=== PATIENT | female | born 1980 | race Caucasian/White ===

== ENCOUNTER 2017-07-31 10:55 | Inpatient (IN) | payer OTHER ==
[~2017-07-31] VITALS: Ht 165.1 cm; Wt 137.1 kg
[2017-07-31 12:08] LABS: BASOPHIL % 0.3 % (0-2)
[2017-07-31 12:09] LABS: PLATELET COUNT 406 x10^3mcL (130-400); RED CELL DISTRIBUTION WIDTH 16.5 % (11.5-14.5)
[2017-07-31 12:10] LABS: UA SPECIFIC GRAVITY 1.025 (1.005-1.035); microscopic required? YES; urine erythrocyte 3+ (NEGATIVE)
[2017-07-31 12:17] LABS: CALCIUM 8.7 mg/dL (8.5-10.1); CARBON DIOXIDE 29.9 mmol/L (21-32); CHLORIDE SERUM 102 mmol/L (98-107); CREATININE SERUM 0.7 mg/dL (0.6-1.0); GFR1 > 60 mL/min; GLUCOSE SERUM 113 mg/dL (74-106); POTASSIUM SERUM 3.5 mmol/L (3.5-5.1); SODIUM SERUM 138 mmol/L (136-145)
[2017-07-31 12:21] LABS: ALKALINE PHOSPHATASE 108 U/L (46-116); ALT/SGPT 113 U/L (14-59); AMYLASE 35 U/L (25-115); AST/SGOT 94 U/L (15-37); BILIRUBIN TOTAL 0.33 mg/dL (0.20-1.00); CHOLESTEROL 180 mg/dL (<200); LIPASE 90 IU/L (73-393)
[2017-07-31 12:23] LABS: ALBUMIN 3.2 g/dL (3.4-5.0); TOTAL PROTEIN, SERUM 8.4 g/dL (6.4-8.2)
[2017-07-31] MEDS ORDERED: [UNRECOGNIZED DRUG - OTHER] PO (13:04)
[2017-07-31] MEDS ORDERED: LOSARTAN POTASS25 M1 PO (13:11)
[2017-07-31] MEDS ORDERED: HYD50T PO (13:12)
[2017-07-31 14:43] LABS: AMPHETAMINE QUAL UR NONE DETECTED (NEG <=1000)
[2017-07-31 14:46] LABS: T3 TOTAL 1.31 ng/mL
[2017-07-31 14:53] VITALS: BP 155/70
[2017-07-31 14:53] LABS: FREE T4 1.11 ng/dL (0.76-1.46); FREE THYROXINE INDEX 3.3 ug/dL (1.4-4.5); T4(THYROXINE) 10.7 ug/dL (4.7-13.3)
[2017-07-31 14:57] LABS: MAGNESIUM 1.9 mg/dL (1.8-2.4); PHOSPHOROUS 3.4 mg/dL (2.5-4.9)
[2017-07-31 20:00] VITALS: BP 184/89
[2017-07-31 22:36] VITALS: BP 156/74
[2017-08-01 05:52] VITALS: BP 157/73
[2017-08-01 05:55] LABS: BASOPHIL % 0.5 % (0-2); PLATELET COUNT 363 x10^3mcL (130-400)
[2017-08-01 06:12] LABS: CALCIUM 8.4 mg/dL (8.5-10.1); CHLORIDE SERUM 105 mmol/L (98-107); CREATININE SERUM 0.8 mg/dL (0.6-1.0); GFR1 > 60 mL/min; GLUCOSE SERUM 114 mg/dL (74-106); POTASSIUM SERUM 3.7 mmol/L (3.5-5.1); SODIUM SERUM 140 mmol/L (136-145)
[2017-08-01 06:18] LABS: RED CELL DISTRIBUTION WIDTH 16.6 % (11.5-14.5)
[2017-08-01 09:01] VITALS: BP 146/80
[2017-08-01 13:58] VITALS: BP 118/59
[2017-08-01 18:35] VITALS: BP 131/68; BP 139/89
[2017-08-01 21:40] VITALS: BP 120/60
[2017-08-02 06:06] LABS: BASOPHIL % 0.2 % (0-2); PLATELET COUNT 388 x10^3mcL (130-400)
[2017-08-02 06:18] LABS: CALCIUM 8.3 mg/dL (8.5-10.1); CARBON DIOXIDE 29.6 mmol/L (21-32); CHLORIDE SERUM 104 mmol/L (98-107); CREATININE SERUM 0.8 mg/dL (0.6-1.0); GFR1 > 60 mL/min; GLUCOSE SERUM 112 mg/dL (74-106); PHOSPHOROUS 3.3 mg/dL (2.5-4.9); POTASSIUM SERUM 3.5 mmol/L (3.5-5.1); SODIUM SERUM 140 mmol/L (136-145)
[2017-08-02 06:21] LABS: RED CELL DISTRIBUTION WIDTH 16.6 % (11.5-14.5)
[2017-08-02 06:39] VITALS: BP 169/51
[2017-08-02 09:41] VITALS: BP 142/58
[2017-08-02 17:19] VITALS: BP 108/58
[2017-08-02 21:28] VITALS: BP 143/73
[2017-08-03 05:38] VITALS: BP 151/81
[2017-08-03 07:02] LABS: BASOPHIL % 0.3 % (0-2); PLATELET COUNT 357 x10^3mcL (130-400)
[2017-08-03 07:06] LABS: RED CELL DISTRIBUTION WIDTH 16.7 % (11.5-14.5)
[2017-08-03 07:17] LABS: CALCIUM 8.4 mg/dL (8.5-10.1); CARBON DIOXIDE 28.3 mmol/L (21-32); CHLORIDE SERUM 104 mmol/L (98-107); CREATININE SERUM 0.9 mg/dL (0.6-1.0); GFR1 > 60 mL/min; GLUCOSE SERUM 92 mg/dL (74-106); MAGNESIUM 1.8 mg/dL (1.8-2.4); PHOSPHOROUS 2.2 mg/dL (2.5-4.9); POTASSIUM SERUM 3.2 mmol/L (3.5-5.1); SODIUM SERUM 139 mmol/L (136-145)
[2017-08-03 07:30] LABS: rbc morphology (normal/abnorm) ABNORMAL (NORMAL)
[2017-08-03] MEDS ORDERED: ZOF4 PO (08:47)
[2017-08-03] MEDS ORDERED: NORCO1 TA2 PO (08:47)
[2017-08-03 10:33] VITALS: BP 165/94
[2017-08-03 13:00] VITALS: BP 165/94
== END 2017-08-03 14:49 | disposition home or self-care (01) | DRG 263 ==
LOC: ED 10:55 → DU 13:45 → MU 08-02 06:14
PROVIDERS: Emergency Medicine; Surgery; ADMIT Family Medicine
PROC: 0FT44ZZ Resection of Gallbladder, Percutaneous Endoscopic Approach (ICD-10-PCS; principal; 2017-08-01 09:45)
DX: K80.00 Calculus of gallbladder with acute cholecystitis without obstruction (principal); E43 Unspecified severe protein-calorie malnutrition; K82.1 Hydrops of gallbladder; I10 Essential (primary) hypertension; E11.65 Type 2 diabetes mellitus with hyperglycemia; Z68.43 Body mass index [BMI] 50.0-59.9, adult; E66.01 Morbid (severe) obesity due to excess calories; D50.0 Iron deficiency anemia secondary to blood loss (chronic); N92.0 Excessive and frequent menstruation with regular cycle; R74.0 Nonspecific elevation of levels of transaminase and lactic acid dehydrogenase [LDH]; I16.0 Hypertensive urgency
CPT/HCPCS: 82962; 83880; 84439; 90658; 94150; 97110-GP; 97116-GP; 97530-GP; J1644; J1815; J1885; J2175; J2250; J2543; J3010; J3490; J7030; Q0092

== ENCOUNTER 2017-09-13 15:27 | Emergency (ER) | payer OTHER ==
[~2017-09-13] VITALS: Ht 165.1 cm; Wt 127.5 kg
[~2017-09-13 15:27] MED LIST: HYD50T PO; LOSARTAN POTASS25 M1 PO; NORCO1 TA2 PO; ZOF4 PO; [UNRECOGNIZED DRUG - OTHER] PO
[2017-09-13 16:52] LABS: BASOPHIL % 0.1 % (0-2); PLATELET COUNT 374 x10^3mcL (130-400)
[2017-09-13 16:54] LABS: RED CELL DISTRIBUTION WIDTH 17.5 % (11.5-14.5)
[2017-09-13 17:06] LABS: ALKALINE PHOSPHATASE 97 U/L (46-116); ALT/SGPT 52 U/L (14-59); AST/SGOT 34 U/L (15-37); BILIRUBIN TOTAL 0.53 mg/dL (0.20-1.00); CALCIUM 8.8 mg/dL (8.5-10.1); CARBON DIOXIDE 27.8 mmol/L (21-32); CHLORIDE SERUM 101 mmol/L (98-107); CREATININE SERUM 0.8 mg/dL (0.6-1.0); GFR1 > 60 mL/min; GLUCOSE SERUM 104 mg/dL (74-106); SODIUM SERUM 137 mmol/L (136-145); TOTAL PROTEIN, SERUM 8.2 g/dL (6.4-8.2)
[2017-09-13 17:07] LABS: ALBUMIN 3.2 g/dL (3.4-5.0)
[2017-09-13 18:25] VITALS: BP 129/57
== END 2017-09-13 18:25 | disposition home or self-care (01) ==
LOC: ED 15:27
PROVIDERS: Emergency Medicine
DX: J06.9 Acute upper respiratory infection, unspecified (principal); I10 Essential (primary) hypertension
CPT/HCPCS: J0696; J7030

== ENCOUNTER 2019-11-13 01:50 | Inpatient (IN) | payer OTHER ==
[~2019-11-13] VITALS: Ht 165.1 cm; Wt 132.0 kg
[2019-11-13 01:55] VITALS: Ht 165.1 cm; Wt 132.0 kg
[2019-11-13 03:22] LABS: CALCIUM 9.1 mg/dL (8.5-10.1); CARBON DIOXIDE 26.3 mmol/L (21-32); CHLORIDE SERUM 103 mmol/L (98-107); CREATININE SERUM 0.8 mg/dL (0.6-1.0); GFR1 > 60 mL/min; GLUCOSE SERUM 127 mg/dL (74-106); POTASSIUM SERUM 3.7 mmol/L (3.5-5.1); SODIUM SERUM 138 mmol/L (136-145)
[2019-11-13 03:23] LABS: CK-MB 1.2 ng/mL (0-3.6)
[2019-11-13 03:28] LABS: ALBUMIN 3.5 g/dL (3.4-5.0); ALKALINE PHOSPHATASE 106 U/L (46-116); ALT/SGPT 37 U/L (14-59); AST/SGOT 20 U/L (15-37); BILIRUBIN TOTAL 0.3 mg/dL (0.20-1.00)
[2019-11-13 03:56] LABS: TOTAL PROTEIN, SERUM 8.4 g/dL (6.4-8.2)
[2019-11-13 04:08] LABS: BASOPHIL % 0.3 % (0-2); PLATELET COUNT 381 x10^3mcL (130-400)
[2019-11-13 04:35] LABS: UA SPECIFIC GRAVITY 1.015 (1.005-1.035); microscopic required? YES; urine erythrocyte 1+ (NEGATIVE)
[2019-11-13] MEDS ORDERED: COZAAR25 M1 PO (04:45)
[2019-11-13] MEDS ORDERED: HYDROCHLOROTH12.5 M3 PO (04:46)
[2019-11-13 05:16] VITALS: BP 214/117
[2019-11-13 05:32] LABS: CHOLESTEROL/HDL RATIO 3.8; MAGNESIUM 2.1 mg/dL (1.8-2.4); PHOSPHOROUS 2.9 mg/dL (2.5-4.9)
[2019-11-13 05:44] LABS: FREE T4 1.15 ng/dL (0.76-1.46); FREE THYROXINE INDEX 3.3 ug/dL (1.4-4.5); T4(THYROXINE) 10.3 ug/dL (4.7-13.3)
[2019-11-13 06:01] LABS: T3 TOTAL 1.4 ng/mL
[2019-11-13 08:02] VITALS: BP 181/75
[2019-11-13 12:06] VITALS: BP 177/78
[2019-11-13 16:11] VITALS: BP 125/59
[2019-11-13 19:43] VITALS: BP 147/79
[2019-11-14 04:34] VITALS: BP 112/69; BP 156/83
[2019-11-14 06:22] LABS: BASOPHIL % 0.4 % (0-2); PLATELET COUNT 332 x10^3mcL (130-400)
[2019-11-14 06:25] LABS: RED CELL DISTRIBUTION WIDTH 17.2 % (11.5-14.5)
[2019-11-14 06:26] LABS: CALCIUM 8.5 mg/dL (8.5-10.1); CARBON DIOXIDE 24.9 mmol/L (21-32); CHLORIDE SERUM 106 mmol/L (98-107); CREATININE SERUM 0.7 mg/dL (0.6-1.0); GFR1 > 60 mL/min; GLUCOSE SERUM 91 mg/dL (74-106); MAGNESIUM 2.1 mg/dL (1.8-2.4); PHOSPHOROUS 3.6 mg/dL (2.5-4.9); POTASSIUM SERUM 3.5 mmol/L (3.5-5.1); SODIUM SERUM 140 mmol/L (136-145)
[2019-11-14 07:01] LABS: AMPHETAMINE QUAL UR NONE DETECTED (See below)
[2019-11-14 08:52] VITALS: BP 133/64
[2019-11-14 08:55] VITALS: BP 165/86
[2019-11-14 12:24] VITALS: BP 196/99
[2019-11-14 16:07] VITALS: BP 157/71
[2019-11-14 20:55] VITALS: BP 154/77
[2019-11-15 05:08] VITALS: BP 142/61
[2019-11-15 06:24] LABS: BASOPHIL % 0.7 % (0-2); PLATELET COUNT 350 x10^3mcL (130-400)
[2019-11-15 06:35] LABS: CALCIUM 8.8 mg/dL (8.5-10.1); CHLORIDE SERUM 102 mmol/L (98-107); CREATININE SERUM 0.7 mg/dL (0.6-1.0); GFR1 > 60 mL/min; GLUCOSE SERUM 85 mg/dL (74-106); POTASSIUM SERUM 3.8 mmol/L (3.5-5.1); RED CELL DISTRIBUTION WIDTH 17.2 % (11.5-14.5); SODIUM SERUM 136 mmol/L (136-145)
[2019-11-15 08:43] VITALS: BP 169/97
[2019-11-15] MEDS ORDERED: NOR10 PO (09:29)
[2019-11-15] MEDS ORDERED: HYD25 PO (09:29)
[2019-11-15] MEDS ORDERED: COZ25 PO (09:29)
[2019-11-15] MEDS ORDERED: MUCINEX600 MG PO (09:29)
[2019-11-15] MEDS ORDERED: LEVOFLOXACIN500 M1 PO (09:30)
[2019-11-15 10:22] VITALS: BP 151/95
[2019-11-15 12:18] VITALS: BP 161/86
[2019-11-15 13:04] VITALS: BP 154/87
[2019-11-15 14:54] VITALS: BP 151/95
== END 2019-11-15 15:30 | disposition home or self-care (01) | DRG 871 ==
LOC: ED 01:50 → MU 04:57 → DU 04:57 → MU 11-14 09:14
PROVIDERS: Emergency Medicine; ADMIT Family Medicine
DX: A41.9 Sepsis, unspecified organism (principal); J18.9 Pneumonia, unspecified organism; Z68.42 Body mass index [BMI] 45.0-49.9, adult; E66.2 Morbid (severe) obesity with alveolar hypoventilation; I16.0 Hypertensive urgency; I10 Essential (primary) hypertension; D89.9 Disorder involving the immune mechanism, unspecified; Z90.49 Acquired absence of other specified parts of digestive tract; Z83.3 Family history of diabetes mellitus; Z82.49 Family history of ischemic heart disease and other diseases of the circulatory system; Z80.0 Family history of malignant neoplasm of digestive organs; Z71.3 Dietary counseling and surveillance
CPT/HCPCS: 83880; 84439; 85378; 87804; 90658; 94150; G0378; J0132; J0360; J0456; J0696; J3490; J7050; J7060; J7620; J7633; Q0092